=== PATIENT | male | born 1935 | race Caucasian/White ===

== ENCOUNTER 2019-10-14 11:42 | Emergency (ER) | payer OTHER ==
[~2019-10-14] VITALS: Ht 172.7 cm; Wt 117.9 kg
[2019-10-14] VITALS (7 sets, daily range): BP systolic 165–199; BP diastolic 69–96
--- NOTE | 2019-10-14 12:15 | NUR ---
ACCOMPANIED PATIENT ON MONITOR TO CT
--- NOTE | 2019-10-14 12:38 | NUR ---
DR WAY SPOKE WITH SON AND DISCUSSED PLAN OF CARE, MADE PT DNRCCA
[2019-10-14 12:42] LABS: BASO % 0.4 % (0.0-1.0); EOS # 0.1 10*3/uL (0.0-0.4); EOS % 0.8 % (1.0-4.0); HEMATOCRIT 45.5 % (42.0-52.0); LYMPH # 1.3 10*3/uL (1.3-4.4); LYMPH % 17.4 % (27.0-41.0); MEAN CELL VOLUME 88.5 fl (80.0-94.0); MEAN CORPUSCULAR HGB 28.8 pg (27.0-31.0); MEAN CORPUSCULAR HGB CONC 32.5 g/dl (33.0-37.0); MEAN PLATELET VOLUME 9.9 fl (9.6-12.3); MONO # 0.4 10*3/uL (0.1-1.0); MONO % 5.8 % (3.0-9.0); NEUT # 5.5 10*3/uL (2.3-7.9); NEUT % 75.5 % (47.0-73.0); PLATELET COUNT AUTOMATED 182 10*3/uL (130-400); RED BLOOD COUNT 5.14 10*6/uL (4.50-5.90); RED CELL DISTRI WIDTH 12.7 % (0-14.5); WHITE BLOOD COUNT 7.2 10*3/uL (4.8-10.8)
[2019-10-14 12:51] LABS: ACT PARTIAL THROMBO TIME 26.3 SECONDS (20.0-32.1); INTERNATIONAL NORM RATIO 1.1 (2.0-3.5)
--- NOTE | 2019-10-14 12:56 | NUR ---
REPORT TO TALIA
[2019-10-14 12:57] LABS: ALBUMIN 3.8 gm/dl (3.1-4.5); ALKALINE PHOSPHATASE 78 U/L (45-117); BUN 10 mg/dl (7-24); CHLORIDE 105 mmol/L (98-107); CREATININE 1.07 mg/dL (0.70-1.30); LIPASE 65 U/L (73-393); POTASSIUM 3.9 mmol/L (3.5-5.1); SGOT/AST 24 IU/L (3-35); SGPT/ALT 40 U/L (12-78); SODIUM 140 mmol/L (136-145); TOTAL PROTEIN 7.4 gm/dL (6.4-8.2)
[2019-10-14 12:59] LABS: TROPONIN I 0.059 ng/ml (<0.045)
--- NOTE | 2019-10-14 15:38 | NUR ---
PT RESTING IN BED SON AT BEDSIDE AWAITING ROOM TO TRANSFER PT
--- NOTE | 2019-10-14 17:05 | NUR ---
contact acid plant operator is Figueroa Hickman cell # and home #
--- NOTE | 2019-10-14 18:33 | NUR ---
PT REMAINS IN BED PT REQUESTING SOMETHING TO EAT THIS NURSE SPOKE TO ER DR WAY TO SWALLOW TEST PRIOR TO INTAKE AND IT WAS DECIDED TO WITHOUT ANY INTAKE PRIOR TO TRANSPORT
--- NOTE | 2019-10-14 19:40 | NUR ---
PATIENT APPEARS AGITATED AT THIS TIME. PER PATIENT TIRED OF WAITING AND HAS NOT EASTEN. RN EXPLAINED TO PATIENT THAT UNTIL HE HAS SWALLOW EVALUATION DONE THAT WE ARE UNABLE TO FEED HIM.
--- NOTE | 2019-10-14 20:15 | NUR ---
[facility] HERE TO TRANSPORT PATIENT AT THIS TIME. REPORT GIVEN TO CREW.
--- NOTE | 2019-10-14 20:35 | NUR ---
Transfer Out, from the Emergency Department - Stable This patient, DELLA COLLAZO, 84, 39, [id number], [id number], was examined by the Emergency Department physician, JACQUELINE Solis DO and efforts were made to stabilize the patient. The patient's condition is stable. The reason for transfer is need higher level of care . The Emergency physician has made the decision to transfer the patient out. Refer to the ED physician's dictation for the family/back-up physician notified. The attending physician has spoken to the accepting physician at the receiving facility, DR CHRISTOPHER. Refer to the ED physician's dictation. The receiving facility has space and qualified personnel to care for the patient, and has agreed to accept the patient. Proper equipment and trained personnel have been arranged. The mode of transport is ground. The agency is [facility]. The Emergency physician has spoken to the transport staff re: patient's condition and needs during transport. Copies of the medical record have been forwarded to the receiving facility, including: - Emergency Department record: - name, address, hospital number, age, next of kin - presenting problem - history of injury, past medical history - treatment, medications & route, fluid type & volume - lab and xray findings, films - physical findings - vitals signs -- prehospital, emergency, pre-transfer - preliminary diagnosis - status/condition - emergency medical services record - consent for transfer - authorization for record release - name of any involed physicians -- responsive or not - name and address of referring physician - name of contact physician at receiving facility - name of accepting physician at receiving facility Nursing report has been given to [facility] [phone]. Valuables include [employer] BAG. and were given to PATIENT/EMS CREW. KASEY DOVE
== END 2019-10-14 20:24 | disposition short-term general hospital (02) ==
LOC: ED 11:42 → EDHOLD 14:16 → ED 14:16
PROVIDERS: Emergency Medicine
DX: I63.9 Cerebral infarction, unspecified (principal); I10 Essential (primary) hypertension; F17.200 Nicotine dependence, unspecified, uncomplicated